=== PATIENT | male | born 1970 | race American Indian/Alaskan Native ===

== ENCOUNTER → 2017-07-05 | Outpatient (CLI) | payer SELFPAY ==
[~2017-07-05] MED LIST: BACITO TOP; CEPH500; ERYT.5TO RIGHTEYE; HYDACE5; HYDACE5 PO; HYDMOR2 PO; NAPR500 PO; Norco 5-325 Ta1 EACH PO; Percocet 10-321 EACH PO; Percocet 5-3251 EACH PO; Percocet 7.5-31 EACH PO; SULTRIDS PO; Silvadene20 GM TOP; Valium5 MG PO
[2017-07-05 11:44] LABS: Specimen Source URINE
[2017-07-06 02:57] LABS: Source Urine
== END ==
LOC: LAB 11:42
PROVIDERS: Physician Assistant
DX: N34.1 Nonspecific urethritis (principal)
CPT/HCPCS: 87077; 87086; 87186; 87491; 87591

== ENCOUNTER 2019-12-21 12:33 | Emergency (ER) | payer OTHER ==
[~2019-12-21 12:33] MED LIST changes: +AMOCLA875 PO; +AMOX-CLAV 875-1 EACH PO; +Prinivil10 MG PO; +VENL25 PO; +Vigamox3 ML RIGHTEYE
== END 2019-12-21 12:39 ==
LOC: ER 12:33
DX: Z02.89 Encounter for other administrative examinations (principal); M79.671 Pain in right foot; I10 Essential (primary) hypertension; Z88.8 Allergy status to other drugs, medicaments and biological substances; Z79.899 Other long term (current) drug therapy; V03.90XA Pedestrian on foot injured in collision with car, pick-up truck or van, unspecified whether traffic or nontraffic accident, initial encounter; Y92.410 Unspecified street and highway as the place of occurrence of the external cause
CPT/HCPCS: 99282

== ENCOUNTER 2020-01-13 14:27 | Emergency (ER) | payer OTHER ==
[~2020-01-13] VITALS: Ht 175.3 cm; Wt 90.7 kg
[2020-01-13] MEDS ORDERED: Neosporin + P28.3 GM TOP (16:38)
[2020-01-13] MEDS ORDERED: HIBICLENS120 ML EXT (17:23)
== END 2020-01-13 17:44 | disposition home or self-care (01) ==
LOC: ER 14:27
DX: S80.212A Abrasion, left knee, initial encounter (principal); S60.512A Abrasion of left hand, initial encounter; S50.312A Abrasion of left elbow, initial encounter; I10 Essential (primary) hypertension; F17.220 Nicotine dependence, chewing tobacco, uncomplicated; Z98.890 Other specified postprocedural states; Z79.899 Other long term (current) drug therapy; V19.9XXA Pedal cyclist (driver) (passenger) injured in unspecified traffic accident, initial encounter; Y92.410 Unspecified street and highway as the place of occurrence of the external cause
CPT/HCPCS: 99284; A9270-GY

== ENCOUNTER 2020-07-28 06:09 | Emergency (ER) | payer OTHER ==
[~2020-07-28] VITALS: Ht 175.3 cm; Wt 83.9 kg
[~2020-07-28 06:09] MED LIST changes: +HIBICLENS120 ML EXT; +Neosporin + P28.3 GM TOP
[2020-07-28] MEDS ORDERED: SULTRIDS PO (07:24)
== END 2020-07-28 07:39 | disposition home or self-care (01) ==
LOC: ER 06:09
DX: L73.9 Follicular disorder, unspecified (principal); I10 Essential (primary) hypertension; F17.220 Nicotine dependence, chewing tobacco, uncomplicated; Z88.8 Allergy status to other drugs, medicaments and biological substances; Z79.899 Other long term (current) drug therapy; Z88.5 Allergy status to narcotic agent
CPT/HCPCS: 99282; A9270

== ENCOUNTER 2020-07-31 21:01 | Inpatient (IN) | payer OTHER ==
[~2020-07-31] VITALS: Ht 175.3 cm; Wt 84.2 kg
[2020-07-31 21:48] LABS: BASOPHILS ABSOLUTE AUTO 0.03 K/mm3 (0.00-0.23); BASOPHILS PERCENT AUTO 0 % (0-2); EOSINOPHILS ABSOLUTE AUTO 0.15 K/mm3 (0.00-0.68); EOSINOPHILS PERCENT AUTO 1 % (0-6); Hematocrit 39.1 % (37.0-53.0); Hemoglobin 13.6 g/dL (13.5-17.5); IMMATURE GRAN ABSOLUTE AUTO 0.06 K/mm3 (0.00-0.10); IMMATURE GRAN PERCENT AUTO 1 % (0-1); LYMPHOCYTES ABSOLUTE AUTO 1.16 K/mm3 (0.84-5.20); LYMPHOCYTES PERCENT AUTO 10 % (21-46); MONOCYTES ABSOLUTE AUTO 0.65 K/mm3 (0.16-1.47); MONOCYTES PERCENT AUTO 6 % (4-13); Mean Corpuscular HGB Conc 34.8 g/dL (31.5-36.5); Mean Corpuscular Volume 89 fL (80-100); Mean Platelet Volume 9.3 fL (9.1-12.4); NEUTROPHILS PERCENT AUTO 82 % (41-73); Platelet Count 332 K/mm3 (150-400); RDW Coefficient Variation 11.9 % (11.7-14.2); RDW Standard Deviation 38.8 fL (35.1-46.3); Red Blood Cell Count 4.39 M/mm3 (4.30-5.90); White Blood Cell Count 11.15 K/mm3 (4.00-11.30)
[2020-07-31 22:06] LABS: Alanine Aminotransfer (ALT/SGP 29 U/L (12-78); Albumin, Blood 3.3 g/dL (3.4-5.0); Albumin/Globulin Ratio 0.7 (0.8-1.8); Alk Phos 95 U/L (50-136); Anion Gap 6 mmol/L (6-16); Aspartate Aminotrans (AST/SGOT 15 U/L (12-37); Bilirubin, Total 0.2 mg/dL (0.1-1.0); Blood Urea Nitrogen 17 mg/dL (8-24); Bun/Creatinine Ratio 13.8 (12.0-20.0); CO2, Blood 25 mmol/L (21-32); Calcium, Blood 8.8 mg/dL (8.5-10.1); Chloride, Blood 107 mmol/L (98-108); Creatinine, Blood 1.23 mg/dL (0.60-1.20); Globulin, Blood 4.5 g/dL (2.2-4.0); Glomerular Filtration Rate >60 (60-); Glucose, Blood 83 mg/dL (70-99); Potassium, Blood 4.4 mmol/L (3.5-5.5); Sodium, Blood 138 mmol/L (136-145); Total Protein, Blood 7.8 g/dL (6.4-8.2)
--- NOTE | 2020-08-01 04:08 | NUR ---
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 ADMIT FROM ED AT 0315. REDNESS/SWELLING NOTED TO R. THIGH. PT STATES PAIN RADIATES INTO KNEE AND BUTTOCKS. MEDICATED PER EMAR. OPEN BLISTERS NOTED IN R. AXILLARY AREA WELL. VSS, NO ACUTE CHANGES AT THIS TIME. BED IN LOWEST POSITION WITH CALL LIGHT IN REACH. WILL CONTINUE TO MONITOR AND REPORT TO ONCOMING RN.
[2020-08-01 10:36] LABS: Influenza A, PCR NEGATIVE (NEGATIVE); Influenza B, PCR NEGATIVE (NEGATIVE); Resp Syncytial Virus, PCR NEGATIVE (NEGATIVE); SARS-Cov-2 (COVID-19) PCR, MMC NEGATIVE (NEGATIVE)
--- NOTE | 2020-08-01 17:50 | NUR ---
PATIENT IS ALERT AND ORIENTED AND COOPERATIVE WITH CARE. HE IS INDEPENDENT IN HIS ROOM. C/O PAIN IN HIS RIGHT THIGH, TREATED PER EMAR. DR. WINTER CONSULTED TODAY AND ORDERED THE PATIENT TO BE NPO AFTER MIDNIGHT TONIGHT AND TO HOLD THE LOVENOX SHOT TOMORROW MORNING IN PREPARATION FOR AN I&D. THE PATIENT TESTED NEGATIVE FOR COVID THIS MORNING. WILL CONTINUE TO MONITOR
--- NOTE | 2020-08-02 03:45 | NUR ---
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 SWELLING AND REDNESS NOTED TO R. THIGH. PT C/O PAIN THAT RADIATES TO BUTTOCKS, MEDICATED PER EMAR. NPO SINCE MIDNIGHT, PLAN IS FOR I&D TODAY. VSS, NO ACUTE CHANGES AT THIS TIME. BED IN LOWEST POSITION WITH CALL LIGHT IN REACH. WILL CONTINUE TO MONITOR AND REPORT TO ONCOMING RN.
--- NOTE | 2020-08-02 11:39 | NUR ---
PATIENT LEFT AMA. HE TOOK OFF HIS TELEMETY AND PULLED OUT HIS IV AND WALKED OUT OFF THE FLOOR. THIS RN TRIED TO CATCH UP TO HIM AND THEN CALLED SECURITY TO TRY TO STOP HIM AND LET HIM KNOW THAT HE WOULD BE TAKEN TO THE OR FOR HIS PROCURE IN 1 HOUR. SECURITY WAS UNABLE TO CATCH UP TO THE PATIENT AND STATED HE WAS ALREADY DOWN THE ROAD BY THE TIME THEY SPOTTED HIM. DR. ROSALES WAS NOTIFIED. THE NURSING SUPERVISIOR WAS NOTIFIED.
== END 2020-08-02 11:34 | disposition left against medical advice (07) | DRG 603 ==
LOC: ER 21:01 → MEDS 08-01 01:14 → ER 08-01 02:20 → MEDS 08-01 02:29
PROVIDERS: Physician Assistant; Surgery; ADMIT Family Medicine
DX: L03.115 Cellulitis of right lower limb (principal); N17.9 Acute kidney failure, unspecified; R65.10 Systemic inflammatory response syndrome (SIRS) of non-infectious origin without acute organ dysfunction; L02.415 Cutaneous abscess of right lower limb; Z20.822 Contact with and (suspected) exposure to COVID-19; L73.2 Hidradenitis suppurativa; I10 Essential (primary) hypertension; F12.90 Cannabis use, unspecified, uncomplicated; Z98.890 Other specified postprocedural states; Z90.89 Acquired absence of other organs; Z88.8 Allergy status to other drugs, medicaments and biological substances; Z79.899 Other long term (current) drug therapy; Z90.49 Acquired absence of other specified parts of digestive tract
CPT/HCPCS: 0241U; 36415; 73701; 76882; 80053; 83605; 85025; 96365; 96366; 96367; 96375; 99284-25; A9270; J0690; J0696; J1170; J1650; J2270; J2704; J2710; J3010; J3370; J7050; J7120; Q9967

== ENCOUNTER 2020-08-07 11:46 | Emergency (ER) | payer OTHER ==
[~2020-08-07] VITALS: Ht 177.8 cm; Wt 72.6 kg
[2020-08-07] MEDS ORDERED: BACL10 PO (12:17)
[2020-08-07] MEDS ORDERED: BETASEPT118 M1 TOP (12:18)
[2020-08-07] MEDS ORDERED: CLIN300 PO (12:18)
[2020-08-07] MEDS ORDERED: HYDR1TAB94 PO (12:19)
[2020-08-07] MEDS ORDERED: LIDO700A20 TOP (12:19)
[2020-08-07] MEDS ORDERED: BENADRYL25 MG PO (12:19)
[2020-08-07] MEDS ORDERED: LISI20 PO (12:20)
[2020-08-07] MEDS ORDERED: NAPR500 PO (12:20)
[2020-08-07] MEDS ORDERED: PRED5 (12:21)
[2020-08-07] MEDS ORDERED: TOPROL XL25 MG PO (14:21)
[2020-08-07] MEDS ORDERED: Prednisone50 MG PO (14:21)
== END 2020-08-07 14:34 | disposition home or self-care (01) ==
LOC: ER 11:46
DX: T78.3XXA Angioneurotic edema, initial encounter (principal); L50.9 Urticaria, unspecified; I10 Essential (primary) hypertension; F17.220 Nicotine dependence, chewing tobacco, uncomplicated; Z88.8 Allergy status to other drugs, medicaments and biological substances; Z79.899 Other long term (current) drug therapy; T46.4X5A Adverse effect of angiotensin-converting-enzyme inhibitors, initial encounter
CPT/HCPCS: 36415; 99284; A9270

== ENCOUNTER 2023-03-18 14:30 | Emergency (ER) | payer OTHER ==
[~2023-03-18] VITALS: Ht 188 cm; Wt 81.7 kg
[~2023-03-18 14:30] MED LIST changes: +BACL10 PO; +BENADRYL25 MG PO; +BETASEPT118 M1 TOP; +CLIN300 PO; +HYDR1TAB94 PO; +LIDO700A20 TOP; +LISI20 PO; +PRED5; +Prednisone50 MG PO; +TOPROL XL25 MG PO
[2023-03-18 14:35] VITALS: BP 167/109
== END 2023-03-18 16:06 | disposition home or self-care (01) ==
LOC: ER 14:30
DX: M77.11 Lateral epicondylitis, right elbow (principal); M77.01 Medial epicondylitis, right elbow; I10 Essential (primary) hypertension; F17.220 Nicotine dependence, chewing tobacco, uncomplicated; Z88.5 Allergy status to narcotic agent; Z79.899 Other long term (current) drug therapy
CPT/HCPCS: 96372; 99283-25; A9270; J1885